=== PATIENT | male | born 1960 | race Caucasian/White ===

== ENCOUNTER 2024-04-29 12:34 | Emergency (ER) | payer OTHER ==
[~2024-04-29] VITALS: Ht 177.8 cm; Wt 108.0 kg
[~2024-04-29 12:34] MED LIST: GABA300 PO; HYDACE10B PO; LEVSOD75 PO; LORA1 PO; OMEP40CA12 PO; OXYACE5T PO; SERT25 PO; WARF1 PO; WARF2 PO
[2024-04-29] MEDS ORDERED: Morphine Sulfate 4 MG/1 ML Injection IV ONE ×2 (19:05→23:20)
[2024-04-29 19:45] LABS: BASOPHILS ABSOLUTE AUTO 0.03 K/mm3 (0.00-0.23); BASOPHILS PERCENT AUTO 0 % (0-2); EOSINOPHILS ABSOLUTE AUTO 0.05 K/mm3 (0.00-0.68); EOSINOPHILS PERCENT AUTO 0 % (0-6); Hematocrit 46.5 % (37.0-53.0); Hemoglobin 15.9 g/dL (13.5-17.5); IMMATURE GRAN ABSOLUTE AUTO 0.03 K/mm3 (0.00-0.10); IMMATURE GRAN PERCENT AUTO 0 % (0-1); LYMPHOCYTES ABSOLUTE AUTO 2.29 K/mm3 (0.84-5.20); LYMPHOCYTES PERCENT AUTO 18 % (21-46); MONOCYTES ABSOLUTE AUTO 1.34 K/mm3 (0.16-1.47); MONOCYTES PERCENT AUTO 10 % (4-13); Mean Corpuscular HGB 29.8 pg (26.0-34.0); Mean Corpuscular HGB Conc 34.2 g/dL (31.5-36.5); Mean Corpuscular Volume 87 fL (80-100); Mean Platelet Volume 10.1 fL (9.1-12.4); NEUTROPHILS ABSOLUTE AUTO 9.26 K/mm3 (1.96-9.15); NEUTROPHILS PERCENT AUTO 71 % (41-73); Platelet Count 236 K/mm3 (150-400); RDW Coefficient Variation 11.4 % (11.7-14.2); RDW Standard Deviation 36.8 fL (35.1-46.3); Red Blood Cell Count 5.34 M/mm3 (4.30-5.90)
[2024-04-29 19:59] LABS: International Normalized Ratio 1.24; Prothrombin Time Results 13.1 Sec (9.7-11.5)
[2024-04-29 20:27] LABS: Albumin, Blood 3.5 g/dL (3.4-5.0); Albumin/Globulin Ratio 0.7 (0.8-1.8); Bilirubin, Total 1.8 mg/dL (0.1-1.0); Bun/Creatinine Ratio 24.9 (12.0-20.0); Calcium, Blood 9.1 mg/dL (8.5-10.1); Creatinine, Blood 0.84 mg/dL (0.60-1.20); Globulin, Blood 4.7 g/dL (2.2-4.0); Potassium, Blood 4.2 mmol/L (3.5-5.5); Total Protein, Blood 8.2 g/dL (6.4-8.2)
[2024-04-30] MEDS ORDERED: HYDROmorphone HCl/Pf 1MG SYR IV PRN (02:20)
== END 2024-04-30 05:35 | disposition short-term general hospital (02) ==
LOC: ER 12:34
PROVIDERS: Student in an Organized Health Care Education/Training Program
DX: T18.108A Unspecified foreign body in esophagus causing other injury, initial encounter (principal); E03.9 Hypothyroidism, unspecified; Z79.01 Long term (current) use of anticoagulants; Z79.899 Other long term (current) drug therapy; Z88.0 Allergy status to penicillin; Z88.8 Allergy status to other drugs, medicaments and biological substances
CPT/HCPCS: 71046; 80053; 85025; 85610; 96374; 96375; 96376; 99285-25; J1170; J2270